=== PATIENT | female | born 1970 | race Caucasian/White ===

== ENCOUNTER 2016-04-26 09:55 | Emergency (ER) | payer OTHER ==
[~2016-04-26] VITALS: Ht 157.5 cm; Wt 62.0 kg
[2016-04-26 10:31] VITALS: Ht 157.5 cm; Wt 62.0 kg
--- NOTE | 2016-04-26 14:37 | RADRPT ---
PROCEDURE: XR Chest. CLINICAL INDICATION: 2-week history of cough and fever. TECHNIQUE: Single frontal view of the chest was obtained. COMPARISON: None. FINDINGS: Cardiomediastinal silhouette appears normal Pulmonary vasculature appears normal. Lung lozoya appear clear. Costophrenic angles are well defined. The osseous elements appear intact. IMPRESSION: 1. No evidence for active cardiopulmonary disease. RPTAT: [facility] Chapin Duque Physician Date Time Electronically viewed and signed by Chapin Duque Physician on 04/26/2016 14:37 /
[2016-04-26] MEDS ORDERED: GUAI118L22 PO (14:47)
--- NOTE | 2016-04-26 15:07 | ERD ---
ER Documentation Chief Complaint Date/Time DATE: 04/26/16 TIME: 15:02 Chief Complaint COUGH X 7 DAYS; FEVER X 2 DAYS HPI This is a 46-year-old female presenting to the emergency department for cough 2 weeks and fever for the past 2 days. Patient describes cough is dry nonproductive that gets worse at night. Patient also reports back pain and chest pain with cough. Denies chest pressure, palpitations, shortness of breath or difficulty breathing. No wheezing. Fever is tactile. Patient has not checked her temperature with a thermometer. Has tried cough medicine and ibuprofen at home without relief of symptoms. No fever or chills while in ED. Oxygen saturation 99% on room air. No sore throat or difficulty swallowing. No muffled voice. Denies earache or headache. No rhinitis or rhinorrhea. ROS All systems reviewed and are negative except as per history of present illness. Medications Home Meds Active Scripts Guaifenesin/Codeine Phosphate (CHERATUSSIN AC SYRUP) 118 Ml Liquid, 10 ML PO Q6H Y for COUGH, #118 ML Prov:ROSITA STYLES NP 04/26/16 Allergies Allergies: Coded Allergies: No Known Allergy (Unverified , 04/26/16) PMhx/Soc History of Surgery: Yes (appendectomy, EYES. ) Anesthesia Reaction: No Hx Neurological Disorder: No Hx Respiratory Disorders: No Hx Cardiac Disorders: No Hx Psychiatric Problems: No Hx Miscellaneous Medical Probl: No Hx Alcohol Use: No Hx Substance Use: No Hx Tobacco Use: No Smoking Status: Never smoker Physical Exam Vitals Vital Signs Date Time Temp Pulse Resp B/P Pulse Ox O2 Delivery O2 Flow Rate FiO2 04/26/16 10:31 98.1 80 19 117/58 99 Physical Exam Const: Alert, [id number] Head: Atraumatic Eyes: Normal Conjunctiva ENT: Normal External Ears, Nose and Mouth. No erythema or exudate posterior pharynx. TMs normal bilaterally. Neck: Full range of motion..~ No meningismus. No lymphadenopathy Resp: Diminished to auscultation bilaterally. No wheezing, rhonchi or crackles. No increased work of breathing. Cardio: Regular rate and rhythm, no murmurs Abd: Soft, non tender, non distended. Normal bowel sounds Skin: No petechiae or rashes Back: No midline or flank tenderness Ext: No cyanosis, or edema Neur: Awake and alert Psych: Normal Mood and Affect Procedures/MDM ED COURSE: The patient was stable throughout ED course. I kept the patient and/or family informed of laboratory and diagnostic imaging results throughout the ED course. Imaging Chest x-ray Patient: WILI PITTS : 1970 Age: 46 Sex: F MR #: [id number] DOS: 04/26/16 1241 Ordering MD: ROSITA STYLES NP Location: [facility] Room/Bed: PROCEDURE: XR Chest. CLINICAL INDICATION: 2-week history of cough and fever. TECHNIQUE: Single frontal view of the chest was obtained. COMPARISON: None. FINDINGS: Cardiomediastinal silhouette appears normal Pulmonary vasculature appears normal. Lung lozoya appear clear. Costophrenic angles are well defined. The osseous elements appear intact. IMPRESSION: 1. No evidence for active cardiopulmonary disease. MDM: 46-year-old female presents emergency department for cough 2 weeks and tactile fever for the past 2 days. Vital signs are stable. No signs or symptoms of respiratory distress. Patient is talking in complete sentences. No fevers or chills. Chest x-ray reviewed by radiologist as no evidence for active cardiopulmonary disease. Here with daughter with same symptoms. Low suspicion for pneumonia, pleural effusion, pneumothorax, pulmonary embolism , strep pharyngitis, epiglottitis for otitis media. Patient likely has URI, viral. Patient is appropriate for outpatient management will be given prescription for Cheratussin AC syrup. Instructed patient to follow-up with primary care provider in the next 2-3 days for reassessment. Return to ED for any high fever , chest pain, difficulty breathing, shortness breath, wheezing, vomiting, diarrhea, abdominal pain or any new or worsening symptoms. Patient verbalizes understanding. All questions answered at discharge. Faroese translation used during this encounter. Departure Diagnosis: Primary Impression: URI (upper respiratory infection) URI type: unspecified viral URI Qualified Code: J06.9 - Viral upper respiratory tract infection Condition: Stable Patient Instructions: Uri, Viral, No Abx (Adult) [facility] Usted se toussaint hecho un examen mdico de control que le indica que no est en hanane condicin que requiera tratamiento urgente en el Departamento de Emergencia. Un estudio ms profundo y el tratamiento de linton condicin pueden esperar sin ningn riesgo hasta que usted sea atendida/o en el consultorio de linton mdico o hanane cl tae. Es responsabilidad suya arreglar hanane val para el seguimiento del demario. MANEJO DE CONDICIONES NO URGENTES EN EL FUTURO 1) Si usted tiene un mdico de atencin primaria: Usted debera llamar a linton mdico de atencin primaria antes de venir al departamento de emergencia. Despus de las horas de consultorio, linton doctor o linton asociado/a est disponible por telfono. El mdico o enfermero de brien en el servicio telefnico puede asesorarle por taylor medio para atender el problema, o demario contrario se puede programar hanane val. 2) Si usted no tiene un mdico de atencin primaria: Llame al mdico o clnica de referencia que aparece abajo juanita las horas de consultorio para hacer hanane val para que le vean. CLINICAS: [facility] [phone] [facility] [phone] [facility]. [facility] 451 [phone] [facility]. [facility] [phone] [facility]. [place] [phone] [facility]. [phone] [facility] () Usted se toussaint hecho un examen mdico de control que le indica que no est en hanane condicin que requiera tratamiento urgente en el Departamento de Emergencia. Un estudio ms profundo y el tratamiento de linton condicin pueden esperar sin ningn riesgo hasta que usted sea atendida/o en el consultorio de linton mdico o hanane cl tae. Es responsabilidad suya arreglar hanane val para el seguimiento del demario. MANEJO DE CONDICIONES NO URGENTES EN EL FUTURO 1) Si usted tiene un mdico de atencin primaria: Usted debera llamar a linton mdico de atencin primaria antes de venir al departamento de emergencia. Despus de las horas de consultorio, linton doctor o linton asociado/a est disponible por telfono. El mdico o enfermero de brien en el servicio telefnico puede asesorarle por taylor medio para atender el problema, o demario contrario se puede programar hanane val. 2) Si usted no tiene un mdico de atencin primaria: Llame al mdico o condado institucions de referencia que aparece abajo juanita las horas de consultorio para hacer hanane val para que le vean. SI USTED NO PUEDE PAGAR PARA JUDE UN MEDICO puede ir a: [facility] [id number] [place] [address] [facility] [address] [place] [address] [facility] [address] [place] [address] [facility] [address] [place], [place] [phone] Additional Instructions: Llame al doctor MAANA y licha hanane VAL PARA DENTRO DE 2-3 [place].Dgale a la secretaria que nosotros le instruimos hacer esta val.Avise o llame si linton condicin se empeora antes de la val. Regresa aqui si peor o no mejor. ROSITA STYLES NP Apr 26, 2016 15:07
== END 2016-04-26 14:54 | disposition home or self-care (01) ==
LOC: FTE 09:55
DX: J06.9 Acute upper respiratory infection, unspecified (principal)
CPT/HCPCS: 71010; Z7502

== ENCOUNTER 2016-10-12 12:28 | Emergency (ER) | END 2016-10-12 16:07 | disposition home or self-care (01) | DX: M54.5 Low back pain (principal) | CPT/HCPCS: 72131; Z7502; Z7610 ==